=== PATIENT | female | born 1935 | race Caucasian/White ===

== ENCOUNTER → 2016-12-10 | Outpatient (REF) | payer MEDICARE, OTHER ==
[~2016-12-10] MED LIST: /CIPR75TA; /WARF5TA PO; ACET500C PO; ACET50TA PO; ACIDCAP PO; ACIDTAB16 PO; ALDA25TA2 OR; ALLO100T PO; ANUSHCSU PR; ASPI81TA63 PO; ASPI81TA85 PO; AVAP300T PO; BACITAB PO; CALCTAB22; CALCTAB7 PO; CEFD1CAP8 PO; CEFD300CAP PO; CIPR250T2 PO; CIPR25SS PO; CIPR500T89 PO; COUM1TAB17 PO; COUM2.5T11 PO; CRANCAP11 PO; DEMA20TA6 PO; DEMEDEX PO; DIFL150T PO; DIGO0.12 PO; DIGO0.126 PO; DULO30CA PO; FLAG500T OR; FURO40TA2 PO; INVA1INJ IV; KLOR1TAB69 PO; KLOR1TAB77 PO; LASI20TA PO; MULTCAP11 PO; NEXI20CA; PRIL20CA PO; SAVICAP PO; SAVITAB PO; SIMV20TA2 PO; SIMVASTIN PO; SITA50TAB OR; SITA50TAB PO; SPIR25TA2 PO; TOPR200T PO; TYL PO; TYLE325T5 PO; VYTO10TA5; WARF5VL PO; ZINC40OI EX; ZINC60OI TOP; [UNRECOGNIZED DRUG - OTHER]; januvia PO
== END ==
LOC: M LAB REF 16:02
PROVIDERS: ATTEND Nurse Practitioner Adult Health
DX: R50.9 Fever, unspecified (principal); N39.0 Urinary tract infection, site not specified

== ENCOUNTER → 2016-12-10 | Outpatient (REF) | payer MEDICARE, OTHER | LOC: M LAB REF 16:11 | PROVIDERS: ATTEND Nurse Practitioner Adult Health | DX: R50.9 Fever, unspecified (principal); N39.0 Urinary tract infection, site not specified ==

== ENCOUNTER → 2017-07-18 | Outpatient (REF) | payer MEDICARE, OTHER ==
[~2017-07-18] MED LIST changes: -ACIDTAB16 PO; +ACIDTAB7 PO; -COUM2.5T11 PO; +COUM2.5T17 PO
== END ==
LOC: M LAB REF 12:46
PROVIDERS: ATTEND Nurse Practitioner Adult Health
DX: R19.7 Diarrhea, unspecified (principal)

== ENCOUNTER → 2019-07-09 | Outpatient (REF) | payer MEDICARE, OTHER ==
[~2019-07-09] MED LIST changes: -/WARF5TA PO; -ACET50TA PO; -ANUSHCSU PR; +AVAP150T31 PO; -CEFD300CAP PO; -DULO30CA PO; +DULO30CA9 PO; +ELIQ5TAB PO; +HYDR1SUP3 PR; +MAPA500T17 PO; +METO200T41 PO; -TOPR200T PO
== END ==
LOC: M LAB REF 16:33
PROVIDERS: ATTEND Nurse Practitioner Adult Health
DX: I13.0 Hypertensive heart and chronic kidney disease with heart failure and stage 1 through stage 4 chronic kidney disease, or unspecified chronic kidney disease (principal)

== ENCOUNTER → 2019-08-24 | Outpatient (REF) | payer MEDICARE, OTHER | LOC: M LAB REF 12:17 | PROVIDERS: ATTEND Nurse Practitioner Adult Health | DX: N39.0 Urinary tract infection, site not specified (principal) ==

== ENCOUNTER → 2020-02-10 | Outpatient (REF) | payer MEDICARE, OTHER ==
[~2020-02-10] MED LIST changes: +ZINC20OI21 TOP; -ZINC60OI TOP
== END ==
LOC: M LAB REF 16:27
PROVIDERS: ATTEND Nurse Practitioner Adult Health
DX: M25.551 Pain in right hip (principal)

== ENCOUNTER → 2020-10-05 | Outpatient (REF) | payer MEDICARE, OTHER ==
[~2020-10-05] MED LIST changes: +CALC-211 PO; -CALCTAB7 PO
== END ==
LOC: M LAB REF 16:38
PROVIDERS: ATTEND Nurse Practitioner Adult Health
DX: D64.9 Anemia, unspecified (principal)

== ENCOUNTER 2020-10-06 10:00 | Outpatient (CLI) | payer MEDICARE, OTHER ==
[2020-10-06] VITALS (7 sets, daily range): BP systolic 136–144; BP diastolic 70–84
[~2020-10-06] VITALS: Ht 157.5 cm; Wt 78.1 kg
[~2020-10-06 10:00] MED LIST changes: +ACETAMINOPHEN TAB 650MG DOSE (2X325MG) PO SCH; +diphenhydrAMINE 25MG CAP PO SCH
[2020-10-06] MEDS ORDERED: FUROSEMIDE 20MG/2ML VIAL (J1940) IV ONE (16:00)
== END 2020-10-06 17:45 | disposition home or self-care (01) ==
LOC: M INFU 10:00
PROVIDERS: ATTEND Nurse Practitioner Adult Health
DX: D64.9 Anemia, unspecified (principal); Z88.0 Allergy status to penicillin; Z88.2 Allergy status to sulfonamides; Z88.6 Allergy status to analgesic agent; Z88.8 Allergy status to other drugs, medicaments and biological substances
CPT/HCPCS: 36430; 36592; 96374; J1940; P9016

== ENCOUNTER 2021-02-02 16:31 | Emergency (ER) | payer MEDICARE, OTHER ==
[~2021-02-02] VITALS: Ht 157.5 cm; Wt 70.7 kg
[~2021-02-02 16:31] MED LIST changes: -ACETAMINOPHEN TAB 650MG DOSE (2X325MG) PO SCH; -diphenhydrAMINE 25MG CAP PO SCH
[2021-02-02] MEDS ORDERED: RABIES IMMUNE GLOBULIN 1500 INTERNATIONAL UNIT/5ML VIAL (90375) IM ONE (18:50)
[2021-02-02] MEDS ORDERED: RABIES VACCINE HUMAN 2.5 INTERNATIONAL UNITS/ML VIAL (90675) IM ONE (18:50)
[2021-02-02] MEDS ORDERED: OCUVTAB PO (19:01)
[2021-02-02] MEDS ORDERED: CLON0.2T PO (19:01)
[2021-02-02] MEDS ORDERED: SPIR-10 PO (19:01)
[2021-02-02] MEDS ORDERED: POTA1TAB14 PO (19:01)
[2021-02-02] MEDS ORDERED: ELIQ2.5T PO (19:01)
[2021-02-02] MEDS ORDERED: ISOS1TAB35 PO (19:01)
[2021-02-02] MEDS ORDERED: IRBE300T7 PO (19:01)
[2021-02-02 20:10] VITALS: BP 190/70
== END 2021-02-02 20:22 | disposition home or self-care (01) ==
LOC: M ED 16:31
DX: Z20.3 Contact with and (suspected) exposure to rabies (principal); Z23 Encounter for immunization; I48.91 Unspecified atrial fibrillation; I25.10 Atherosclerotic heart disease of native coronary artery without angina pectoris; I50.9 Heart failure, unspecified; F03.90 Unspecified dementia, unspecified severity, without behavioral disturbance, psychotic disturbance, mood disturbance, and anxiety; E78.5 Hyperlipidemia, unspecified; J44.9 Chronic obstructive pulmonary disease, unspecified; K76.9 Liver disease, unspecified; Z79.899 Other long term (current) drug therapy; Z88.6 Allergy status to analgesic agent; Z88.0 Allergy status to penicillin; Z88.2 Allergy status to sulfonamides; Z88.8 Allergy status to other drugs, medicaments and biological substances; Z91.013 Allergy to seafood

== ENCOUNTER 2021-02-05 09:12 | Emergency (ER) | payer MEDICARE, OTHER ==
[~2021-02-05] VITALS: Ht 157.5 cm; Wt 70.9 kg
[~2021-02-05 09:12] MED LIST changes: +CLON0.2T PO; +ELIQ2.5T PO; +IRBE300T7 PO; +ISOS1TAB35 PO; +OCUVTAB PO; +POTA1TAB14 PO; +SPIR-10 PO
[2021-02-05] MEDS ORDERED: RABIES VACCINE HUMAN 2.5 INTERNATIONAL UNITS/ML VIAL (90675) IM ONE (09:40)
[2021-02-05 09:51] VITALS: BP 170/60
== END 2021-02-05 10:30 | disposition home or self-care (01) ==
LOC: M ED 09:12
DX: Z20.3 Contact with and (suspected) exposure to rabies (principal); R22.43 Localized swelling, mass and lump, lower limb, bilateral; I11.0 Hypertensive heart disease with heart failure; I25.10 Atherosclerotic heart disease of native coronary artery without angina pectoris; J44.9 Chronic obstructive pulmonary disease, unspecified; E78.5 Hyperlipidemia, unspecified; K21.9 Gastro-esophageal reflux disease without esophagitis; Z79.899 Other long term (current) drug therapy; Z88.8 Allergy status to other drugs, medicaments and biological substances; Z88.0 Allergy status to penicillin; Z91.013 Allergy to seafood; Z88.2 Allergy status to sulfonamides; Z88.1 Allergy status to other antibiotic agents

== ENCOUNTER 2021-02-09 13:14 | Emergency (ER) | payer MEDICARE, OTHER ==
[~2021-02-09] VITALS: Ht 157.5 cm; Wt 69.1 kg
[2021-02-09 13:15] VITALS: BP 184/65
[2021-02-09] MEDS ORDERED: RABIES VACCINE HUMAN 2.5 INTERNATIONAL UNITS/ML VIAL (90675) IM ONE (13:30)
== END 2021-02-09 14:23 | disposition home or self-care (01) ==
LOC: M ED 13:14
DX: Z23 Encounter for immunization (principal); Z20.3 Contact with and (suspected) exposure to rabies; I48.91 Unspecified atrial fibrillation; I10 Essential (primary) hypertension; K21.9 Gastro-esophageal reflux disease without esophagitis; Z79.01 Long term (current) use of anticoagulants; Z79.899 Other long term (current) drug therapy; Z88.6 Allergy status to analgesic agent; Z88.0 Allergy status to penicillin; Z88.2 Allergy status to sulfonamides; Z88.8 Allergy status to other drugs, medicaments and biological substances; Z91.013 Allergy to seafood